=== PATIENT | female | born 1990 | race Two or more races ===

== ENCOUNTER 2016-06-17 20:41 | Emergency (ER) | payer OTHER ==
[2016-06-17 20:47] VITALS: BP 123/77; PULSE 90; TEMP 97.8; BMI 27.1
--- NOTE | 2016-06-17 22:41 | PDOC ---
History of Present Illness - General Chief Complaint: Respiratory Stated Complaint: DIFF BREATHING Time Seen by Provider: 06/17/16 22:10 History Source: Patient Exam Limitations: No Limitations - History of Present Illness Initial Comments: 06/17/16 23: Chief complaint: Difficulty breathing Patient is a 25-year-old female with a history of anxiety who states that every day she has difficulty breathing, feels like she can't catch her breath, feels tightness in her throat and heaviness above her breasts. This is been going on for a while. She saw her postal inspector, Dr. Macdonald who told her that everything was normal, no asthma, no pulmonary issues. She sees her primary care doctor who started her on Lexapro and Klonopin but she doesn't take the Klonopin she doesn't want to be involved with that medicine. She has cut caffeine out of her diet for the last year. She has been to the ER for similar before. Patient does not take control. Patient is not depressed although she is frustrated with having the symptoms. Patient is asymptomatic now GENERAL/CONSTITUTIONAL: No fever, weakness. dizziness HEAD, EYES, EARS, NOSE AND THROAT: No change in vision. No ear pain or discharge. No sore throat. CARDIOVASCULAR: + Into a mitten chest pain RESPIRATORY: + Intermittent shortness of breath, no: cough GASTROINTESTINAL: No pain, nausea, vomiting, diarrhea or constipation GENITOURINARY: No dysuria MUSCULOSKELETAL: No neck or back pain SKIN: No rash NEUROLOGIC: No headache, vertigo, loss of consciousness, or loss of sensation. GENERAL: The patient is awake, alert, and fully oriented, in no acute distress. HEAD: Normal with no signs of trauma. EYES: Pupils equal, round and reactive to light, sclera anicteric, conjunctiva clear. ENT: pharynx: no erythema, no exudate, uvula midline NECK: supple CHEST: clear, nontender, rr ABD: soft, nontender EXTREMITIES: Normal range of motion, no edema. NEUROLOGICAL: Normal speech, normal gait. SKIN: Warm, Dry Past History - Past Medical History Allergies/Adverse Reactions: Allergies Allergy/AdvReac Type Severity Reaction Status Date / Time peanut Allergy Rash Verified 06/17/16 20:43 CAULIFLOWER Allergy Rash Uncoded 06/17/16 20:43 Home Medications: Ambulatory Orders Famotidine [Pepcid -] 20 mg PO DAILY 06/17/16 Asthma: Yes Psychiatric Problems: Yes (anxiety/depression) - Immunization History Immunization Up to Date: Yes - Psycho/Social/Smoking Cessation Hx Anxiety: Yes Suicidal Ideation: No Smoking History: Never smoked Have you smoked in the past 12 months: No Hx Alcohol Use: No Drug/Substance Use Hx: No Substance Use Type: None *Physical Exam - Vital Signs Last Vital Signs Temp Pulse Resp BP Pulse Ox 97.8 F 90 20 123/77 99 06/17/16 20:43 06/17/16 20:43 06/17/16 20:43 06/17/16 20:43 06/17/16 20:43 Heart Score/ECG Review - Electrocardiogram EKG: Normal - Age Age: </= 45 - Risk Factors Risk Factors Heart Score: No Hx Hypercholesterolemia, No Hx Hypertension, No Hx Diabetes, No Smoking History Based on the list above the patient has:: No risk factors known - ECG Intrepretation Rhythm: Regular Rhythm Comment:: 06/17/16 23:07 Sinus arrhythmia at 61, normal EKG Medical Decision Making - Medical Decision Making 06/17/16 23:10 Patient has never seen software applications developer, will refer her although EKG is normal, and patient does not have high risk for cardiac disease. Patient is also going to see a psychiatrist that is been recommended to her. Spent a long time discussing anxiety and I gave her information regarding how to recognize it and control it. No other acute issues. Patient is asymptomatic and has normal interaction during visit *DC/Admit/Observation/Transfer Diagnosis at time of Disposition: Anxiety - Discharge Dispostion Disposition: HOME Condition at time of disposition: Stable - Referrals Referrals: Mars Mcneil MD [Primary Care Provider] - - Patient Instructions Printed Discharge Instructions: DI for Anxiety -- Adult Additional Instructions: Follow-up with the software applications developer and discuss further regarding her anxiety with your medical professional of choosing as discussed - Post Discharge Activity Work/School Note: Back to Work
--- NOTE | 2016-06-18 13:04 | EKG ---
Test Reason : Blood Pressure : / mmHG Vent. Rate : 061 BPM Atrial Rate : 061 BPM P-R Int : 142 ms QRS Dur : 086 ms QT Int : 400 ms P-R-T Axes : 044 064 047 degrees QTc Int : 402 ms NORMAL SINUS RHYTHM WITH SINUS ARRHYTHMIA NORMAL ECG NO PREVIOUS ECGS AVAILABLE Confirmed by NICOLE CORRAL, SIS ([id number]) on 06/18/2016 1:04:17 PM Referred By: Confirmed By:SIS RIVERA MD
== END 2016-06-17 22:47 | disposition home or self-care (01) ==
LOC: JERFT 20:41
DX: F41.8 Other specified anxiety disorders (principal)
CPT/HCPCS: 93005; 93010; 99281-25

== ENCOUNTER 2016-09-11 14:33 | Emergency (ER) | payer OTHER ==
[2016-09-11 14:37] VITALS: BP 123/70; PULSE 85; TEMP 97.7; BMI 27.8
--- NOTE | 2016-09-11 15:24 | PDOC ---
History of Present Illness - General Chief Complaint: Sore Throat Stated Complaint: THROAT PAIN, BODY ACHES Time Seen by Provider: 09/11/16 15:10 History Source: Patient Exam Limitations: No Limitations - History of Present Illness Initial Comments: 09/11/16 15:25 CC nasal congesion and cough x 2 days; no fever Timing/Duration: 24 hours Past History - Past Medical History Allergies/Adverse Reactions: Allergies Allergy/AdvReac Type Severity Reaction Status Date / Time peanut Allergy Rash Verified 09/11/16 14:37 CAULIFLOWER Allergy Rash Uncoded 09/11/16 14:37 Home Medications: Ambulatory Orders Famotidine [Pepcid -] 20 mg PO DAILY 06/17/16 Asthma: No Diabetes: No HTN: No Hypercholesterolemia: No Psychiatric Problems: Yes (anxiety/depression) - Immunization History Immunization Up to Date: Yes - Psycho/Social/Smoking Cessation Hx Anxiety: Yes Suicidal Ideation: No Smoking History: Never smoked Have you smoked in the past 12 months: No Hx Alcohol Use: Yes (SOCIAL) Drug/Substance Use Hx: No Substance Use Type: None Review of Systems - Review of Systems Constitutional: No: Symptoms Reported, Chills, Fever HEENTM: Yes: Nose Congestion, Throat Pain. No: Throat Swelling, Mouth Pain, Dental Problems Respiratory: Yes: Cough. No: Symptoms reported, Stridor, Wheezing Cardiac (ROS): No: Symptoms Reported *Physical Exam - Vital Signs Last Vital Signs Temp Pulse Resp BP Pulse Ox 97.7 F 85 20 123/70 100 09/11/16 14:34 09/11/16 14:34 09/11/16 14:34 09/11/16 14:34 09/11/16 14:34 - Physical Exam General Appearance: Yes: Appropriately Dressed. No: Apparent Distress HEENT: positive: TMs Normal, Nasal Congestion, Rhinorrhea, Sinus Tenderness, Other (with post nasal drip) Neck: positive: Supple. negative: Tender, Rigid Respiratory/Chest: positive: Lungs Clear. negative: Chest Tender, Stridor, Wheezing Cardiovascular: positive: Regular Rhythm, Regular Rate. negative: Murmur Medical Decision Making - Medical Decision Making 09/11/16 15:27 lots off fluids *DC/Admit/Observation/Transfer Diagnosis at time of Disposition: Upper respiratory infection Qualifiers: URI type: unspecified URI Qualified Code(s): J06.9 - Acute upper respiratory infection, unspecified - Discharge Dispostion Disposition: HOME Condition at time of disposition: Stable Admit: No - Patient Instructions Additional Instructions: lots of fluids; return for increased symptoms; gargle; motrin for pain - Post Discharge Activity Work/School Note: Back to Work
== END 2016-09-11 15:35 | disposition home or self-care (01) ==
LOC: JERFT 14:33
DX: J06.9 Acute upper respiratory infection, unspecified (principal); I10 Essential (primary) hypertension; F41.8 Other specified anxiety disorders
CPT/HCPCS: 99281-25

== ENCOUNTER 2017-07-30 02:46 | Emergency (ER) | payer SELFPAY ==
[2017-07-30 03:03] VITALS: BP 127/72; PULSE 90; TEMP 98.4; BMI 41.9
--- NOTE | 2017-07-30 03:54 | PDOC ---
History of Present Illness - General Stated Complaint: S.O.B. Time Seen by Provider: 07/30/17 03:40 History Source: Patient Exam Limitations: No Limitations - History of Present Illness Initial Comments: 07/30/17 03:49 This is a 26-year-old female with history of anxiety who presents emergency Department with a brief episode of shortness of breath while laying in bed tonight. Patient states is about the fall asleep and all of a sudden she had to breathe deep to catch her breath. Patient states after taking one gasp she was able to catch her breath quickly and then took a Xanax to help relieve some anxiety. Patient states the symptoms are consistent with her usual anxiety attack. Patient denies any fevers, chills, chest pain, abdominal pain, nausea, vomiting. Patient does not take any control pills and denies any recent periods of prolonged inactivity. Past History - Past Medical History Allergies/Adverse Reactions: Allergies Allergy/AdvReac Type Severity Reaction Status Date / Time peanut Allergy Rash Verified 07/30/17 02:52 CAULIFLOWER Allergy Rash Uncoded 07/30/17 02:52 Home Medications: Ambulatory Orders Famotidine [Pepcid -] 20 mg PO DAILY 06/17/16 Penicillin V Potassium [Pen Vee K -] 500 mg PO TID #21 tablet 01/12/17 Phenol [Chloraseptic -] 1 spray MM ASDIR PRN #1 bottle 01/12/17 Asthma: No COPD: No Diabetes: No HTN: No Hypercholesterolemia: No Psychiatric Problems: Yes (anxiety/depression) - Immunization History Immunization Up to Date: Yes - Suicide/Smoking/Psychosocial Hx Smoking History: Never smoked Have you smoked in the past 12 months: No Hx Alcohol Use: No Drug/Substance Use Hx: No Substance Use Type: None Respiratory Specific PMHX - Complaint Specific PMHX Angina: No Bronchitis: No Pneumonia: No Pulmonary Embolus: No TB (Tuberculosis): No Review of Systems - Review of Systems Able to Perform ROS?: Yes Is the patient limited American proficient: No Constitutional: No: Symptoms Reported HEENTM: No: Symptoms Reported Respiratory: Yes: See HPI Cardiac (ROS): No: Symptoms Reported ABD/GI: No: Symptoms Reported : No: Symptoms Reported Musculoskeletal: No: Symptoms Reported Integumentary: No: Symptoms Reported Neurological: No: Symptoms reported Endocrine: No: Symptoms Reported Hematologic/Lymphatic: No: Symptoms Reported *Physical Exam - Vital Signs Last Vital Signs Temp Pulse Resp BP Pulse Ox 98.4 F 90 20 127/72 100 07/30/17 02:50 07/30/17 02:50 07/30/17 02:50 07/30/17 02:50 07/30/17 02:50 - Physical Exam General Appearance: Yes: Appropriately Dressed. No: Apparent Distress HEENT: positive: Normal ENT Inspection, Normal Voice Neck: positive: Trachea midline, Supple. negative: Stridor Respiratory/Chest: positive: Lungs Clear, Normal Breath Sounds. negative: Respiratory Distress, Accessory Muscle Use Cardiovascular: positive: Regular Rhythm, Regular Rate. negative: Murmur Gastrointestinal/Abdominal: positive: Normal Bowel Sounds, Soft. negative: Tender Musculoskeletal: positive: Normal Inspection. negative: CVA Tenderness Extremity: positive: Normal Capillary Refill, Normal Inspection Integumentary: positive: Normal Color, Dry, Warm Neurologic: positive: Alert, Normal Response Moderate Sedation - Procedure Monitoring Vital Signs: Vital Signs Temp Pulse Resp BP Pulse Ox 98.4 F 90 20 127/72 100 07/30/17 02:50 07/30/17 02:50 07/30/17 02:50 07/30/17 02:50 07/30/17 02:50 Medical Decision Making - Medical Decision Making 07/30/17 03:53 A/P: 26-year-old female with history of anxiety presents with brief episode of shortness of breath relieved by her Xanax Lungs clear to auscultation bilaterally No stridor noted RRR. S1 and S2 present. No murmur, rub or gallop noted. EKG *DC/Admit/Observation/Transfer - Referrals Referrals: Chava Guillaume [Primary Care Provider] - - Patient Instructions - Post Discharge Activity
--- NOTE | 2017-07-30 16:32 | EKG ---
Test Reason : Blood Pressure : / mmHG Vent. Rate : 060 BPM Atrial Rate : 060 BPM P-R Int : 146 ms QRS Dur : 078 ms QT Int : 402 ms P-R-T Axes : 049 072 057 degrees QTc Int : 402 ms NORMAL SINUS RHYTHM NORMAL ECG WHEN COMPARED WITH ECG OF 17-JUN-2016 22:31, NO SIGNIFICANT CHANGE WAS FOUND Confirmed by JULIAN MOLINA MD ([id number]) on 07/30/2017 4:31:45 PM Referred By: Confirmed By:JULIAN MOLINA MD
== END 2017-07-30 05:00 | disposition home or self-care (01) ==
LOC: JER 02:46
DX: R06.02 Shortness of breath (principal); F41.8 Other specified anxiety disorders
CPT/HCPCS: 93005; 93010; 99281-25